=== PATIENT | male | born 1965 | race Asian ===

== ENCOUNTER 2018-12-29 19:14 | Emergency (ER) | payer OTHER ==
[~2018-12-29] VITALS: Ht 165.1 cm; Wt 71.2 kg
[2018-12-29 20:07] LABS: PLATELET COUNT 220 K/uL (142-355)
[2018-12-29 21:28] VITALS: BP 118/69; TEMP 98.1
[2018-12-30] MEDS ORDERED: TAMS0.4C PO (03:12)
[2018-12-30] MEDS ORDERED: TRAZ50TA36 PO (03:13)
[2018-12-30] MEDS ORDERED: TYLENOL325 MG PO (03:14)
[2018-12-30] MEDS ORDERED: AMLODIPINE BESYLATE PO (03:15)
[2018-12-30] MEDS ORDERED: ASPIRIN 81 LOW81 MG PO (03:16)
[2018-12-30] MEDS ORDERED: CLON0.5T36 PO (03:17)
[2018-12-30] MEDS ORDERED: LIPITOR40 MG PO (03:17)
[2018-12-30] MEDS ORDERED: ACID CONTROL20 MG PO (03:18)
[2018-12-30] MEDS ORDERED: FLUOXETINE20 MG PO (03:18)
[2018-12-30] MEDS ORDERED: HYDRALAZINE25 MG PO (03:19)
[2018-12-30] MEDS ORDERED: LISI20TA11 PO (03:19)
[2019-01-09] MEDS ORDERED: OXCARBAZEPIN300 MG PO ×2 (22:29)
[2019-01-09] MEDS ORDERED: OLANZAPINE10 MG PO (22:29)
[2019-01-09] MEDS ORDERED: OLANZAPINE5 MG PO (22:30)
[2019-01-09] MEDS ORDERED: HALO5INJ3 IM (22:30)
[2019-01-09] MEDS ORDERED: FOLI1TAB26 PO (22:30)
[2019-01-09] MEDS ORDERED: FLUOXETINE20 MG PO (22:30)
[2019-01-25] MEDS ORDERED: OLANZAPINE10 MG PO ×2 (09:58)
[2019-01-25] MEDS ORDERED: ASPIRIN 81 LOW81 MG PO (09:58)
[2019-01-25] MEDS ORDERED: LISI20TA11 PO (09:58)
[2019-01-25] MEDS ORDERED: TYLENOL325 MG PO (09:58)
[2019-01-25] MEDS ORDERED: OXCARBAZEPIN300 MG PO (09:58)
[2019-01-25] MEDS ORDERED: LIPITOR40 MG PO (09:58)
[2019-01-25] MEDS ORDERED: ACID CONTROL20 MG PO (09:58)
[2019-01-25] MEDS ORDERED: AMLODIPINE BESYLATE PO (09:58)
[2019-01-25] MEDS ORDERED: OLAN10INJ IM (09:58)
[2019-01-25] MEDS ORDERED: HALO5TAB10 PO (09:58)
[2019-01-25] MEDS ORDERED: TRAZ50TA36 PO ×2 (09:58)
[2019-01-25] MEDS ORDERED: HYDRALAZINE25 MG PO (09:58)
== END 2018-12-29 21:28 | disposition still patient (30) ==
LOC: ED 19:14
PROVIDERS: Emergency Medicine Emergency Medical Services
DX: F20.89 Other schizophrenia (principal); R00.1 Bradycardia, unspecified; Z04.6 Encounter for general psychiatric examination, requested by authority
CPT/HCPCS: 80053; 81000; 85027; 99285

== ENCOUNTER 2019-02-13 19:32 | Emergency (ER) | payer OTHER ==
[~2019-02-13] VITALS: Ht 165.1 cm; Wt 71.2 kg
[2019-02-13 19:32] VITALS: BP 149/89; TEMP 97.5
[~2019-02-13 19:32] MED LIST: ACID CONTROL20 MG PO; AMLODIPINE BESYLATE PO; ASPIRIN 81 LOW81 MG PO; CLON0.5T36 PO; FLUOXETINE20 MG PO; FOLI1TAB26 PO; HALO5INJ3 IM; HALO5TAB10 PO; HYDRALAZINE25 MG PO; LIPITOR40 MG PO; LISI20TA11 PO; OLAN10INJ IM; OLANZAPINE10 MG PO; OLANZAPINE5 MG PO; OXCARBAZEPIN300 MG PO; TAMS0.4C PO; TRAZ50TA36 PO; TYLENOL325 MG PO
[2019-02-13 20:10] LABS: PLATELET COUNT 147 K/uL (142-355)
[2019-02-13 20:24] LABS: POTASSIUM 3.6 mmol/L (3.6-5.2)
[2019-02-13] MEDS ORDERED: TYLENOL325 MG PO (22:34)
[2019-03-02] MEDS ORDERED: ONDA2INJ2 IM (08:44)
[2019-03-02] MEDS ORDERED: PANTOPRAZOLE 40MG TA PO (08:44)
[2019-03-02] MEDS ORDERED: HALO50IN4 IM (08:45)
[2019-03-02] MEDS ORDERED: CHOL100034 PO (08:45)
[2019-03-02] MEDS ORDERED: HALO5TAB10 PO (08:45)
[2019-03-02] MEDS ORDERED: HALO5INJ3 IM (08:45)
== END 2019-02-13 21:00 | disposition other institution (70) ==
LOC: ED 19:32
PROVIDERS: Emergency Medicine
DX: R46.89 Other symptoms and signs involving appearance and behavior (principal); Z04.6 Encounter for general psychiatric examination, requested by authority
CPT/HCPCS: 36415; 80053; 84484; 85027; 93005; 99285

== ENCOUNTER 2019-11-08 22:20 | Emergency (ER) | payer OTHER ==
[~2019-11-08] VITALS: Ht 165.1 cm; Wt 74.8 kg
[~2019-11-08 22:20] MED LIST changes: +CHOL100034 PO; +HALO50IN4 IM; +ONDA2INJ2 IM; +PANTOPRAZOLE 40MG TA PO
[2019-11-08 22:37] LABS: PLATELET COUNT 166 K/uL (142-355)
[2019-11-08 22:45] LABS: POTASSIUM 3.3 mmol/L (3.6-5.2)
[2019-11-08 23:50] VITALS: BP 166/86; TEMP 99.1
[2019-11-09] MEDS ORDERED: AMLODIPINE BESYLATE PO (02:14)
[2019-11-09] MEDS ORDERED: LISI20TA11 PO (02:18)
[2019-11-09] MEDS ORDERED: SERTRALINE HYDR50 MG PO (02:21)
[2019-11-09] MEDS ORDERED: HYDRALAZINE25 MG PO (02:23)
[2019-11-09] MEDS ORDERED: IBU600 MG PO (02:26)
[2019-11-09] MEDS ORDERED: TRILEPTAL300 MG PO (02:30)
[2019-11-09] MEDS ORDERED: PERPHENAZINE4 MG PO (02:34)
[2019-11-09] MEDS ORDERED: BENZTROPINE0.5 MG PO (02:37)
== END 2019-11-08 23:50 | disposition other institution (70) ==
LOC: ED 22:20
PROVIDERS: Emergency Medicine
DX: F28 Other psychotic disorder not due to a substance or known physiological condition (principal); Z11.59 Encounter for screening for other viral diseases; Z04.6 Encounter for general psychiatric examination, requested by authority
CPT/HCPCS: 36415; 80053; 85027; 87635; 93005; 99285; G2023; U0003